=== PATIENT | female | born 1980 | race African-American/Black ===

== ENCOUNTER 2022-01-08 14:49 | Emergency (ER) | payer MEDICARE, MEDICAID ==
[~2022-01-08] VITALS: Ht 167.6 cm; Wt 91.0 kg
[~2022-01-08 14:49] MED LIST: AMLO1TAB36 PO; DIAZ5TAB4 PO; VIC GT
[2022-01-08] MEDS ORDERED: IBUPROFEN 800MG TABLET PO ONE (15:15)
[2022-01-08] MEDS ORDERED: IBUP-2029 MT (16:35)
[2022-01-08 16:47] VITALS: BP 122/80
== END 2022-01-08 16:57 | disposition home or self-care (01) ==
LOC: ER 15:00
DX: S60.011A Contusion of right thumb without damage to nail, initial encounter (principal); W18.39XA Other fall on same level, initial encounter; Y93.89 Activity, other specified; Y92.89 Other specified places as the place of occurrence of the external cause; Y99.8 Other external cause status; I10 Essential (primary) hypertension; Z79.899 Other long term (current) drug therapy
CPT/HCPCS: 73130; 81025; 99283